=== PATIENT | male | born 1960 | race Two or more races ===

== ENCOUNTER 2022-10-29 08:35 | Outpatient (CLI) | payer OTHER | END 2022-10-29 08:45 | disposition home or self-care (01) | LOC: SONOGRAMA 08:35 | PROVIDERS: ATTEND Specialist | DX: R22.2 Localized swelling, mass and lump, trunk (principal) ==

== ENCOUNTER 2022-10-31 09:36 | Outpatient (CLI) | payer OTHER | END 2022-10-31 09:37 | disposition home or self-care (01) | LOC: LAB 09:36 | PROVIDERS: ATTEND Specialist | DX: R22.2 Localized swelling, mass and lump, trunk (principal) ==

== ENCOUNTER 2022-11-14 08:01 | Outpatient (CLI) | payer OTHER | END 2022-11-14 08:15 | disposition home or self-care (01) | LOC: MRI 08:01 | PROVIDERS: ATTEND Specialist | DX: R22.2 Localized swelling, mass and lump, trunk (principal) | CPT/HCPCS: 72147 ==